=== PATIENT | male | born 1985 | race Caucasian/White ===

== ENCOUNTER 2018-08-22 12:46 | Emergency (ER) | payer OTHER ==
[~2018-08-22] VITALS: Ht 172.7 cm; Wt 77.1 kg
[2018-08-22 13:12] LABS: ABSOLUTE EOSINOPHILS 0.1 thou/uL (0.0-0.7); ABSOLUTE LYMPHOCYTES 2.1 thou/uL (0.8-5.3); ABSOLUTE MONOCYTES 0.5 thou/uL (0.0-1.2); BASOPHILS 0.4 %; EOSINOPHILS 0.9 %; HEMATOCRIT 42.9 % (42.0-52.0); HEMOGLOBIN 14.9 gm/dL (14.0-18.0); LYMPHOCYTES 37.6 %; MCHC 34.8 g/dL (28.0-37.0); MCV 89.1 fL (80.0-100.0); MONOCYTES 8.5 %; MPV 7.7 fl. (7.2-11.1); NUCLEATED RBCS 0 /100WBC; PLATELET COUNT* 281 thou/uL (150-400); POLYS 52.6 %; RBC 4.81 mil/uL (4.50-6.00); RDW-CV 13.2 % (10.5-14.5); WBC 5.6 thou/uL (4.0-11.0)
[2018-08-22 13:24] LABS: ALBUMIN 4.3 g/dL (3.4-5.0); CREATININE 0.9 mg/dL (0.6-1.3); TOTAL BILIRUBIN 0.8 mg/dL (<0.1-1.0); TOTAL PROTEIN 7.6 g/dL (6.4-8.2)
[2018-08-22 14:03] LABS: URINE BILIRUBIN NEGATIVE (Negative); URINE BLOOD NEGATIVE (Negative); URINE CLARITY CLEAR; URINE COLOR YELLOW; URINE GLUCOSE-RANDOM NEGATIVE (Negative); URINE KETONES NEGATIVE (Negative); URINE LEUKOCYTES-REFLEX NEGATIVE (Negative); URINE NITRITE-REFLEX NEGATIVE (Negative); URINE PROTEIN NEGATIVE (Negative); URINE UROBILINOGEN 0.2 E.U./dl (0.2-1.0)
[2018-08-22] MEDS ORDERED: FLAGYL500 M1 PO (14:41)
[2018-08-22] MEDS ORDERED: CIPROFLOXACIN500 M1 PO (14:41)
[2018-08-22] MEDS ORDERED: PREDNISONE 20 M20 M1 PO (14:41)
[2018-08-22 14:52] VITALS: BP 121/81
--- NOTE | 2018-08-22 16:12 | EKG ---
[place] [address] ELECTROCARDIOGRAM REPORT Name: LACEY ZAPIEN [id number] Admission: 08/22/18 Attend Phys: Discharge: 08/22/18 Date of : 87 Report #: [id number] THIS REPORT FOR: //name// [facility] ED Test Date: 2018-08-22 Test Time: 12:53:11 Pat Name: LACEY ZAPIEN Department: Room: Gender: M [employer] Agent: JUS : 1985 Requested By: Roman Barney Order Number: [id number] Rachel MD: Zack Fong Measurements Intervals [place] Rate: 66 P: 42 [place]: 148 QRS: 40 QRSD: 102 T: 30 QT: 402 QTc: 422 Interpretive Statements Sinus rhythm Minor IVCD Baseline wander in lead(s) I,II,aVR No previous ECG available for comparison Electronically Signed On 08-22-2018 16:11:54 [employer] by Zack Fong [email or web address] <ELECTRONICALLY SIGNED> By: Zack Fong MD, [facility] 08/22/18 1611 [id number] Zack Fong MD, FACC /EPI
== END 2018-08-22 14:53 | disposition home or self-care (01) ==
LOC: M.ERS 12:46
PROVIDERS: Family Medicine
DX: K52.9 Noninfective gastroenteritis and colitis, unspecified (principal)